=== PATIENT | male | born 1940 | race Caucasian/White ===

== ENCOUNTER 2017-10-06 15:17 | Emergency (ER) | payer MEDICARE ==
[2017-10-06 15:29] VITALS: BP 145/79
--- NOTE | 2017-10-06 15:37 | UC ---
Skin Complaint HPI - HPI Summary HPI Summary: 77 yo male presents with rash. He tells me that 1 month ago he moved from [place] to [place] for the summer and [place] staying [place] with his . He admits that this cabins has a lot of bugs, insects, and spiders. Has also noticed bed bugs. Over the last month he will have 1-2mm mild areas of erythema to his legs , arms, torso, or axilla that are itchy at first, but go away in a couple days - only to reappear a day or two later in a new spot. He has not applied any creams and is very anxious about this. Denies fever, chills, or open wounds. His does not have any similar symptoms and they are sharing the living space. - History of Current Complaint Chief Complaint: UCRash Time Seen by Provider: 10/06/17 15:37 Stated Complaint: RASH Hx Obtained From: Patient Current Severity: None Pain Intensity: 0 - Allergy/Home Medications Allergies/Adverse Reactions: Allergies Allergy/AdvReac Type Severity Reaction Status Date / Time bee venom protein (honey bee) Allergy Swelling Verified 10/06/17 15:29 Home Medications: Home Medications Anti-Inflammatory* 10/06/17 [History] Review of Systems Constitutional: Negative Skin: Rash Respiratory: Negative Cardiovascular: Negative Gastrointestinal: Negative Neurovascular: Negative Neurological: Negative Psychological: Negative All Other Systems Reviewed And Are Negative: Yes PMH/Surg Hx/FS Hx/Imm Hx GI/ History: Gastroesophageal Reflux Psychological History: Anxiety - Surgical History Surgical History: Yes Surgery Procedure, Year, and Place: APPENDECTOMY- AGE 10 YEARS. RIGHT TOTAL HIP REPLACEMENT- 6 YEARS AGO- [facility]. 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 CARPAL TUNNEL - Family History Known Family History: Positive: None - Social History Occupation: Retired Lives: With Family Alcohol Use: Daily Alcohol Amount: WINE DAILY Substance Use Type: None Smoking Status (MU): Current Every Day Smoker Type: Cigars Amount Used/How Often: X 15 YEARS Have You Smoked in the Last Year: No When Did the Patient Quit Smoking/Using Tobacco: 1967 Physical Exam - Summary Physical Exam Summary: GENERAL: NAD. WDWN. No pain distress. SKIN: Right forearm: Scant 1-2mm areas of erythema. No streaking, bleeding, or drainage. NECK: Supple. Nontender. No lymphadenopathy. CHEST: No accessory muscle use. Breathing comfortably and in no distress. CV: Pulses intact NEURO: Alert. CN II-XII grossly intact. PSYCH: Age appropriate behavior. Triage Information Reviewed: Yes Vital Signs: Initial Vital Signs Temp 98.3 F 10/06/17 15:23 Pulse 66 10/06/17 15:23 Resp 16 10/06/17 15:23 BP 145/79 10/06/17 15:23 Pulse Ox 98 10/06/17 15:23 Vital Signs Reviewed: Yes Course/Dx - Course Course Of Treatment: Suspect bed bugs vs scabies. - Diagnoses Provider Diagnoses: Bed bugs Discharge - Sign-Out/Discharge Documenting (check all that apply): Patient Departure - Discharge Plan Condition: Stable Disposition: HOME Prescriptions: Permethrin 5% CREAM* 1 applic TOPICAL SEE INSTRUCTIONS #1 tube Patient Education Materials: Bed Bugs (ED) Referrals: Brianne Payne MD [Medical Doctor] - As Soon As Possible No Primary Care Phys,NOPCP [Primary Care Provider] - Additional Instructions: If you develop a fever, shortness of breath, chest pain, new or worsening symptoms - please call your PCP or go to the ED. Your blood pressure was high at todays visit. Please see your primary provider within 4 weeks for recheck and re-evaluation. - Billing Disposition and Condition Condition: STABLE Disposition: Home
== END 2017-10-06 16:07 | disposition home or self-care (01) ==
LOC: UCEAST 15:17
DX: R21 Rash and other nonspecific skin eruption (principal); T14.8XXA Other injury of unspecified body region, initial encounter; W57.XXXA Bitten or stung by nonvenomous insect and other nonvenomous arthropods, initial encounter; Y93.9 Activity, unspecified; Y92.89 Other specified places as the place of occurrence of the external cause; Z91.030 Bee allergy status; Z96.641 Presence of right artificial hip joint; Z96.652 Presence of left artificial knee joint; F17.290 Nicotine dependence, other tobacco product, uncomplicated
CPT/HCPCS: 99212; G0463

== ENCOUNTER 2017-10-18 15:41 | Emergency (ER) | payer MEDICARE ==
[2017-10-18 16:08] VITALS: BP 144/76
--- NOTE | 2017-10-18 16:41 | UC ---
Complaint Male HPI - HPI Summary HPI Summary: started having trouble starting urine flow and emptying bladder 2 -3 days ago, no dysuria, no blood - History of Current Complaint Chief Complaint: UCGU Stated Complaint: POSS UTI Time Seen by Provider: 10/18/17 15:56 Hx Obtained From: Patient Onset/Duration: Gradual Onset Timing: Constant Severity Initially: Mild Severity Currently: None Pain Intensity: 0 Location: None Aggravating Factor(s): Voiding Alleviating Factor(s): Nothing Associated Signs And Symptoms: Positive: Negative - Allergies/Home Medications Allergies/Adverse Reactions: Allergies Allergy/AdvReac Type Severity Reaction Status Date / Time bee venom protein (honey bee) Allergy Mild Swelling Verified 10/18/17 16:09 PMH/Surg Hx/FS Hx/Imm Hx Previously Healthy: Yes Endocrine History: Other - low testosterone Other Endocrine History: low testosterone Psychological History: Depression - Surgical History Surgical History: Yes Surgery Procedure, Year, and Place: APPENDECTOMY- AGE 10 YEARS. RIGHT TOTAL HIP REPLACEMENT- 6 YEARS AGO- [facility]. TOTAL LEFT KNEE REPLACEMENT-04/2013- [facility]. CARPAL TUNNEL - Family History Known Family History: Positive: None - Social History Occupation: Retired Lives: With Family Alcohol Use: Daily Alcohol Amount: WINE DAILY Substance Use Type: None Smoking Status (MU): Former Smoker Type: Cigars Amount Used/How Often: X 15 YEARS Have You Smoked in the Last Year: No When Did the Patient Quit Smoking/Using Tobacco: 1968 Review of Systems Constitutional: Negative Skin: Negative Respiratory: Negative Cardiovascular: Negative Genitourinary: Other - hesitency Psychological: Negative All Other Systems Reviewed And Are Negative: Yes Physical Exam Triage Information Reviewed: Yes Appearance: Well-Appearing, No Pain Distress, Well-Nourished Vital Signs: Initial Vital Signs Temp 98.1 F 10/18/17 16:03 Pulse 59 10/18/17 16:03 Resp 16 10/18/17 16:03 BP 144/76 10/18/17 16:03 Pulse Ox 96 10/18/17 16:03 Vital Signs Reviewed: Yes Respiratory Exam: Normal Cardiovascular Exam: Normal Abdomen Description: Positive: Nontender Neurological Exam: Normal Neurological: Positive: Alert Psychological Exam: Normal Skin Exam: Normal Complaint Male Course/Dx - Differential Dx/Diagnosis Differential Diagnosis/HQI/PQRI: Prostatitis, Ureteral Calculi, Urinary Tract Infection Provider Diagnoses: urinary hesitency Discharge - Sign-Out/Discharge Documenting (check all that apply): Patient Departure - Discharge Plan Condition: Good Disposition: HOME Patient Education Materials: Dysuria (ED) Referrals: No Primary Care Phys,NOPCP [Primary Care Provider] - Additional Instructions: drink plenty of fluids follow-up with urine culture results return if symptoms worsen at anytime - Billing Disposition and Condition Condition: GOOD Disposition: Home
== END 2017-10-18 16:50 | disposition home or self-care (01) ==
LOC: UCEAST 15:41
DX: R39.11 Hesitancy of micturition (principal)
CPT/HCPCS: 81003; 87086; 99212; G0463